=== PATIENT | female | born 1950 | race Caucasian/White ===

== ENCOUNTER → 2017-09-30 09:41 | Outpatient (CLI) | payer MEDICARE, OTHER, SELFPAY ==
[2017-09-30 09:57] LABS: Add Manual Diff / Slide Review NO; Basophils Percent Auto 1.1 % (0-2); Eosinophils Percent Auto 3.3 % (2-4); Hematocrit 42.2 % (36-46); Hemoglobin 14.1 g/dL (12.0-16.0); Lymphocytes Percent Auto 33.4 % (25-40); Mean Corpuscular HGB Conc 33.5 % (30-36); Mean Corpuscular Hemoglobin 29.6 PG (26-34); Mean Corpuscular Volume 88.4 fL (80-100); Monocytes Percent Auto 9.5 % (3-14); Neutrophils Absolute Auto 2700 /uL (3000-5900); Neutrophils Percent Auto 52.7 % (50-75); Platelet Count 195 X10^3/uL (150-400); Red Blood Cell Count 4.77 X10^6/uL (4.0-5.2); White Blood Cell Count 5.2 X10^3/uL (4.5-11.0)
[2017-09-30 10:33] LABS: Alanine Aminotransferase 28 IU/L (9-52); Albumin 4.3 g/dL (3.5-5.0); Albumin Globulin Ratio 1.7 (1.0-2.8); Alkaline Phosphatase 51 U/L (38-126); Aspartate Aminotransferase 27 IU/L (14-36); BUN Creatinine Ratio 17.5 (6-22); Bilirubin Total 0.9 mg/dL (0.2-1.3); Blood Urea Nitrogen 14 mg/dL (7-17); Calcium 9.5 mg/dL (8.4-10.2); Carbon Dioxide 30 mmol/L (22-32); Chloride 104 mmol/L (98-107); Cholesterol 175 mg/dL (140-199); Estimated Glomerular Filt Rate > 60.0 mL/min (>60); Globulin 2.6 g/dL (1.7-4.1); Glucose 97 mg/dL (80-110); HDL Cholesterol 61 mg/dL (40-60); HEMOLYSIS < 15 (0-50); LDL Cholesterol Calculated 99 mg/dL (<100); Sodium 141 mmol/L (137-145); Total Protein 6.9 g/dL (6.3-8.2); Triglycerides 74 mg/dL (35-150)
[2017-09-30 11:05] LABS: Thyroid Stimulating Hormone 2.34 uIU/mL (0.47-4.68)
== END ==
PROVIDERS: PCP Family Medicine; Visit Provider Family Medicine
DX: E78.5 Hyperlipidemia, unspecified (principal)
CPT/HCPCS: 36415; 80053; 80061; 84443; 85025

== ENCOUNTER 2018-03-11 07:52 | Emergency (ER) | payer MEDICARE, OTHER, SELFPAY ==
[2018-03-11 07:58] VITALS: BP 159/84; PULSE 65; RESP 18; TEMP 36.8; O2SAT 99
[2018-03-11 08:00] VITALS: BP 159/84; PULSE 65; RESP 18; TEMP 36.8; O2SAT 99; BMI 22.7
[2018-03-11] MEDS: KETOROLAC 60 MG/2 ML VIAL 15 MG IV (08:35)
[2018-03-11] MEDS: ONDANSETRON 4 MG/2 ML INJ IV (08:36)
[2018-03-11] MEDS: SODIUM CHLORIDE 0.9% 1,000 ML 1000 ML IV (08:36)
[2018-03-11 08:37] LABS: Add Manual Diff / Slide Review NO; Basophils Percent Auto 0.6 % (0-2); Eosinophils Percent Auto 1.7 % (2-4); Hematocrit 41.6 % (36-46); Hemoglobin 14.2 g/dL (12.0-16.0); Lymphocytes Percent Auto 32.9 % (25-40); Mean Corpuscular HGB Conc 34.2 % (30-36); Mean Corpuscular Hemoglobin 29.7 PG (26-34); Mean Corpuscular Volume 86.9 fL (80-100); Monocytes Percent Auto 10.2 % (3-14); Neutrophils Absolute Auto 3400 /uL (1500-7000); Neutrophils Percent Auto 54.6 % (50-75); Platelet Count 237 X10^3/uL (150-400); Red Blood Cell Count 4.79 X10^6/uL (4.0-5.2); Red Cell Distribution Width 12.8 % (11.6-14.8); White Blood Cell Count 6.2 X10^3/uL (4.5-11.0)
[2018-03-11 08:48] LABS: BUN Creatinine Ratio 12.5 (6-22); Blood Urea Nitrogen 10 mg/dL (7-17); Calcium 9.7 mg/dL (8.4-10.2); Carbon Dioxide 23 mmol/L (22-32); Chloride 105 mmol/L (98-107); Estimated Glomerular Filt Rate > 60.0 mL/min (>60); Glucose 112 mg/dL (80-110); HEMOLYSIS < 15 (0-50); Potassium 3.6 mmol/L (3.4-5.1); Sodium 143 mmol/L (137-145)
--- NOTE | 2018-03-11 08:59 | ED.ABDPAIN ---
HPI - Abdominal Pain General Chief Complaint: Abdominal Pain Stated Complaint: THINKS KIDNEY STONE,THROWING UP Time Seen by Provider: 03/11/18 07:56 Source: patient Mode of arrival: ambulatory Limitations: no limitations History of Present Illness HPI narrative: 67F non smoker presents with the chief complaint of sudden onset left lower quadrant pain that started about 1 hr ago. She denies radiation of the pain. She denies provocation, palliation or radiation. She has had nausea and vomiting secondary to pain. She denies fever or chills. She denies any dysuria, frequency or urgency. She has a history of kidney stones and diverticulitis and states this feels like kidney stones. Related Data Home Medications Medication Instructions Recorded Confirmed Cholesteroloff Plus PO 09/30/17 09/30/17 red yeast rice 600 mg tablet 600 mg PO DAILY 09/30/17 09/30/17 Previous Rx's Medication Instructions Recorded simvastatin 20 mg tablet 10 mg PO Q DAY #30 tab 01/17/18 ketorolac 10 mg PO Q6H PRN #14 tab 03/11/18 ondansetron 4 mg PO TID-QID PRN #10 tab 03/11/18 tamsulosin [Flomax] 0.4 mg PO DAILY #10 cap 03/11/18 Allergies Allergy/AdvReac Type Severity Reaction Status Date / Time No Known Drug Allergies Allergy Verified 03/11/18 08:04 Review of Systems Review of Systems All systems reviewed & are unremarkable except as noted in HPI and below Constitutional Denies chills, Denies fever(s), Denies lethargy and Denies weakness Eyes Denies change in vision, Denies eye discharge, Denies irritation and Denies loss of vision ENT Ears, Nose, Mouth, and Throat: Denies change in voice, Denies neck pain and Denies sore throat Cardiovascular Denies chest pain, Denies irregular heart rhythm, Denies lightheadedness, Denies palpitations, Denies dyspnea, Denies dyspnea on exertion and Denies orthopnea Respiratory Denies cough, Denies dyspnea, Denies dyspnea on exertion and Denies wheezing Gastrointestinal Gastrointestinal: Reports abdominal pain, Denies change in bowel habits, Denies diarrhea, Reports nausea and Reports vomiting Genitourinary Denies hematuria, Denies flank pain, Denies urinary incontinence and Denies urinary urgency Musculoskeletal Denies neck pain Integumentary/Breasts Denies pruritus, Denies erythema, Denies rash and Denies wounds Neurologic Denies confusion, Denies loss of vision and Denies weakness Psychiatric Denies anxiety, Denies confusion, Denies depression, Denies homicidal ideation and Denies suicidal ideation Endocrine Denies palpitations Hematologic/Lymphatic Denies easy bruising Allergic/Immunologic Denies wheezing [facility] Medical History Allergic rhinitis (Chronic Unknown) Diverticular disease (Chronic Unknown) Hearing loss (Chronic Unknown) Hyperlipemia (Chronic Unknown) Surgical History History of ear surgery (Resolved ~1985) Hx of thumb surgery (Resolved Unknown) Hx of tonsillectomy (Resolved Unknown) Status post knee surgery Family History Father CAD (coronary artery disease) Smoker Mother Hx of CABG High cholesterol Hypertension Glaucoma Social History Smoking Status: Never smoker alcohol intake: former Exam Narrative Exam Narrative: GENERAL: 67-year-old female, obviously in pain, pacing the room HEAD: Atraumatic. Normocephalic. No temporal or scalp tenderness. EYES: Pupils equal round and reactive. Extraocular motions intact. No scleral icterus. No injection or drainage. ENT: Nose without bleeding, purulent drainage or septal hematoma. Throat without erythema, tonsillar hypertrophy or exudate. Uvula midline. Airway patent. NECK: Trachea midline. No JVD or lymphadenopathy. Supple, nontender, no meningeal signs. CARDIOVASCULAR: Regular rate and rhythm without murmurs, gallops, or rubs. RESPIRATORY: Clear to auscultation. Breath sounds equal bilaterally. No wheezes, rales, or rhonchi. GASTROINTESTINAL: Abdomen soft, non-tender, nondistended. No hepato-splenomegaly, or palpable masses. No guarding. EXTREMITIES: No clubbing, cyanosis, or edema. No joint tenderness, effusion, or edema noted. BACK: Nontender without deformity or crepitance. No flank tenderness. NEURO: AOx3. SKIN: No rash or erythema. Initial Vital Signs Initial Vital Signs: Vital Signs Temperature 98.3 F 03/11/18 07:58 Pulse Rate 65 03/11/18 07:58 Respiratory Rate 18 03/11/18 07:58 Blood Pressure 159/84 H 03/11/18 07:58 Pulse Oximetry 99 03/11/18 07:58 Const General: cooperative and well developed Nutritional Appearance: well nourished Orientation: alert, awake, oriented x3 and not confused [facility] Head: normocephalic and atraumatic Ears: external ears normal and TM's normal bilaterally Nose: external nose normal and No nasal discharge Face and sinus: sinuses nontender, face symmetric, no sinus tenderness and No dry mucous membranes Mouth: oral mucosae normal and moist mucous membranes Teeth and gingiva: dentition normal Throat: tonsils normal and uvula midline Neck Neck: normal visual inspection, trachea midline, No lymphadenopathy, No midline deformity and No JVD Lymphatic: No lymphedema Resp Effort & Inspection: normal respiratory effort, able to speak in complete sentences, no respiratory distress and no use of accessory muscles Auscultation: clear to auscultation bilaterally, no rales, no rhonchi and no wheezes GI Inspection: non-distended Palpation: soft, no hepatosplenomegaly, No guarding, No pulsatile mass and No tender Auscultation: normal bowel sounds Back/Spine/Pelvis Back: No CVA tenderness Cervical Spine: cervical ROM normal and No pain with cervical ROM Thoracic/Lumbar Spine: thoracic and lumbar spine normal to inspection Neuro General: alert, oriented x3, gait normal and no focal motor deficits Speech: speech normal Extrem General: full ROM, no clubbing, cyanosis or edema, no pedal edema and no calf tenderness Course Orders Ordered: ED Orders 03/11/18 08:25 Basic Metabolic Panel Stat Complete Blood Count AUTO DIFF Stat 03/11/18 08:30 Urine Microscopic Stat Ondansetron HCl (Zofran) 4 mg IV Q4HR PRN PRN Reason: Nausea And Vomiting Last Admin: 03/11/18 08:36 Dose: 4 mg Discontinued Medications Sodium Chloride (Normal Saline 0.9%) 1,000 mls @ 1,000 mls/hr IV BOLUS ONE Stop: 03/11/18 09:25 Last Admin: 03/11/18 08:36 Dose: 1,000 mls/hr Ketorolac Tromethamine (Toradol) 15 mg IV NOW ONE Stop: 03/11/18 08:27 Last Admin: 03/11/18 08:35 Dose: 15 mg Reevaluation(s) Reevaluation #1: Patient has tremendous improvement in symptoms after above-stated therapies Vital Signs - 8 hr 03/11/18 07:58 03/11/18 08:00 03/11/18 09:11 Temperature 98.3 F 98.3 F Pulse Rate 65 65 55 L Respiratory Rate 18 18 18 Blood Pressure 159/84 H Blood Pressure [Right Arm] 159/84 H 145/65 H Pulse Oximetry 99 99 98 MDM - Abdominal Pain Differential Diagnosis Differential diagnosis: Likely abdominal pain, calculus of kidney, diverticulitis, small bowel obstruction and other Medical Records Attestation: I reviewed the patient's medical records. Lab Data Attestation: I reviewed the patient's lab results. Result diagrams: 03/11/18 08:25 03/11/18 08:25 Lab Results 03/11/18 03/11/18 03/11/18 Range/Units 08:25 08:25 08:30 WBC 6.2 (4.5-11.0) X10^3/uL RBC 4.79 (4.0-5.2) X10^6/uL Hgb 14.2 (12.0-16.0) g/dL Hct 41.6 (36-46) % MCV 86.9 (80-100) fL MCH 29.7 (26-34) PG MCHC 34.2 (30-36) % RDW 12.8 (11.6-14.8) % Plt Count 237 (150-400) X10^3/uL Neut % (Auto) 54.6 (50-75) % Lymph % (Auto) 32.9 (25-40) % Centre % (Auto) 10.2 (3-14) % Eos % (Auto) 1.7 L (2-4) % Baso % (Auto) 0.6 (0-2) % Neut # (Auto) 3400 (3095-2286) /uL Sodium 143 (137-145) mmol/L Potassium 3.6 (3.4-5.1) mmol/L Chloride 105 (98-107) mmol/L Carbon Dioxide 23 (22-32) mmol/L BUN 10 (7-17) mg/dL Creatinine 0.80 (0.52-1.04) mg/dL Estimated GFR > 60.0 (>60) mL/min BUN/Creatinine Ratio 12.5 (6-22) Glucose 112 H (80-110) mg/dL Calcium 9.7 (8.4-10.2) mg/dL Urine RBC 5-10/hpf H (0-5/HPF) Urine WBC 0-1/hpf (0-5/HPF) Ur Squamous Epith Cells 1-5 /hpf Urine Bacteria None seen (None) Ur Culture Indicated? Cult not indicated Micro UA Comment Not Reportable Point of care testing: Urine Dip Bedside Urine Glucose Negative Bedside Urine Bilirubin - Negative Bedside Urine Ketone - Negative Urine Specific [place] 1.030 Bedside Urine Occult Blood ++ Bedside Urine pH 6.0 Bedside Urine Protein +/- 15 Bedside Urine Urobilinogen +/- 1mg Bedside Urine Nitrite - Negative Bedside Urine Leukocytes + 70 Esterase MDM Narrative Medical decision making narrative: patient presents with symptoms very suggestive of kidney stone including lack of provocation or palliation, unable to find a position of comfort, along with blood in her urine and normal labs. Other diagnoses such as diverticulitis, ovarian or other were considered but lack of suggestive symptoms, labs mid this much less likely Discharge Plan Departure Patient Disposition: Home Clinical Impression: Calculus of kidney Discharge Date/Time: 03/11/18 09:35 Instructions: DI for Kidney Stones Activity Restrictions/Additional Instructions: *You have been diagnosed with [ kidney stone ] *What to do: *Take medications as directed: [facility] [place] at your request *Follow up with your primary care provider in 2-3 days, call for an appointment. Let them know you were seen in the Emergency Department and that we ask that you be seen in follow up *Return to ER if you should have any new, worsening or concerning symptoms, such as [fever, shaking chills, persistent vomiting, worsening pain, other bothersome symptoms ] Prescriptions: New ketorolac 10 mg tablet 10 mg PO Q6H PRN (Reason: pain) Qty: 14 RF: 0 tamsulosin [Flomax] 0.4 mg capsule 0.4 mg PO DAILY Qty: 10 RF: 0 ondansetron 4 mg tablet,disintegrating 4 mg PO TID-QID PRN (Reason: nausea and vomiting) Qty: 10 RF: 0 No Action red yeast rice 600 mg tablet 600 mg PO DAILY RF: 0 Cholesteroloff Plus PO RF: 0 simvastatin 20 mg tablet 10 mg PO Q DAY Qty: 30 RF: 0 Referrals: Omkar Gama MD [Non-Staff] - Payton Marroquin DO [Primary Care Provider] -
[2018-03-11 09:06] LABS: Bacteria Urine None Seen
[2018-03-11 09:07] LABS: Culture Indicated Urine Cult Not Indicated
[2018-03-11 09:08] LABS: RBC Urine 5-10/HPF (0-5/HPF); WBC Urine 0-1/HPF (0-5/HPF)
[2018-03-11 09:09] LABS: Squamous Epithelial Cell Urine 1-5 /HPF
[2018-03-11 09:11] VITALS: BP 145/65; PULSE 55; RESP 18; O2SAT 98
--- NOTE | 2018-03-11 09:26 | ED_ITS ---
HPI - Abdominal Pain General Chief Complaint: Abdominal Pain Stated Complaint: THINKS KIDNEY STONE,THROWING UP Time Seen by Provider: 03/11/18 07:56 Source: patient Mode of arrival: ambulatory Limitations: no limitations History of Present Illness HPI narrative: 67F non smoker presents with the chief complaint of sudden onset left lower quadrant pain that started about 1 hr ago. She denies radiation of the pain. She denies provocation, palliation or radiation. She has had nausea and vomiting secondary to pain. She denies fever or chills. She denies any dysuria, frequency or urgency. She has a history of kidney stones and diverticulitis and states this feels like kidney stones. Related Data Home Medications Medication Instructions Recorded Confirmed Cholesteroloff Plus PO 09/30/17 09/30/17 red yeast rice 600 mg tablet 600 mg PO DAILY 09/30/17 09/30/17 Previous Rx's Medication Instructions Recorded simvastatin 20 mg tablet 10 mg PO Q DAY #30 tab 01/17/18 ketorolac 10 mg PO Q6H PRN #14 tab 03/11/18 ondansetron 4 mg PO TID-QID PRN #10 tab 03/11/18 tamsulosin [Flomax] 0.4 mg PO DAILY #10 cap 03/11/18 Allergies Allergy/AdvReac Type Severity Reaction Status Date / Time No Known Drug Allergies Allergy Verified 03/11/18 08:04 Review of Systems Review of Systems All systems reviewed & are unremarkable except as noted in HPI and below Constitutional Denies chills, Denies fever(s), Denies lethargy and Denies weakness Eyes Denies change in vision, Denies eye discharge, Denies irritation and Denies loss of vision ENT Ears, Nose, Mouth, and Throat: Denies change in voice, Denies neck pain and Denies sore throat Cardiovascular Denies chest pain, Denies irregular heart rhythm, Denies lightheadedness, Denies palpitations, Denies dyspnea, Denies dyspnea on exertion and Denies orthopnea Respiratory Denies cough, Denies dyspnea, Denies dyspnea on exertion and Denies wheezing Gastrointestinal Gastrointestinal: Reports abdominal pain, Denies change in bowel habits, Denies diarrhea, Reports nausea and Reports vomiting Genitourinary Denies hematuria, Denies flank pain, Denies urinary incontinence and Denies urinary urgency Musculoskeletal Denies neck pain Integumentary/Breasts Denies pruritus, Denies erythema, Denies rash and Denies wounds Neurologic Denies confusion, Denies loss of vision and Denies weakness Psychiatric Denies anxiety, Denies confusion, Denies depression, Denies homicidal ideation and Denies suicidal ideation Endocrine Denies palpitations Hematologic/Lymphatic Denies easy bruising Allergic/Immunologic Denies wheezing [facility] Medical History Allergic rhinitis (Chronic Unknown) Diverticular disease (Chronic Unknown) Hearing loss (Chronic Unknown) Hyperlipemia (Chronic Unknown) Surgical History History of ear surgery (Resolved ~1985) Hx of thumb surgery (Resolved Unknown) Hx of tonsillectomy (Resolved Unknown) Status post knee surgery Family History Father CAD (coronary artery disease) Smoker Mother Hx of CABG High cholesterol Hypertension Glaucoma Social History Smoking Status: Never smoker alcohol intake: former Exam Narrative Exam Narrative: GENERAL: 67-year-old female, obviously in pain, pacing the room HEAD: Atraumatic. Normocephalic. No temporal or scalp tenderness. EYES: Pupils equal round and reactive. Extraocular motions intact. No scleral icterus. No injection or drainage. ENT: Nose without bleeding, purulent drainage or septal hematoma. Throat without erythema, tonsillar hypertrophy or exudate. Uvula midline. Airway patent. NECK: Trachea midline. No JVD or lymphadenopathy. Supple, nontender, no meningeal signs. CARDIOVASCULAR: Regular rate and rhythm without murmurs, gallops, or rubs. RESPIRATORY: Clear to auscultation. Breath sounds equal bilaterally. No wheezes , rales, or rhonchi. GASTROINTESTINAL: Abdomen soft, non-tender, nondistended. No hepato-splenomegaly , or palpable masses. No guarding. EXTREMITIES: No clubbing, cyanosis, or edema. No joint tenderness, effusion, or edema noted. BACK: Nontender without deformity or crepitance. No flank tenderness. NEURO: AOx3. SKIN: No rash or erythema. Initial Vital Signs Initial Vital Signs: Vital Signs Temperature 98.3 F 03/11/18 07:58 Pulse Rate 65 03/11/18 07:58 Respiratory Rate 18 03/11/18 07:58 Blood Pressure 159/84 H 03/11/18 07:58 Pulse Oximetry 99 03/11/18 07:58 Const General: cooperative and well developed Nutritional Appearance: well nourished Orientation: alert, awake, oriented x3 and not confused [facility] Head: normocephalic and atraumatic Ears: external ears normal and TM's normal bilaterally Nose: external nose normal and No nasal discharge Face and sinus: sinuses nontender, face symmetric, no sinus tenderness and No dry mucous membranes Mouth: oral mucosae normal and moist mucous membranes Teeth and gingiva: dentition normal Throat: tonsils normal and uvula midline Neck Neck: normal visual inspection, trachea midline, No lymphadenopathy, No midline deformity and No JVD Lymphatic: No lymphedema Resp Effort & Inspection: normal respiratory effort, able to speak in complete sentences, no respiratory distress and no use of accessory muscles Auscultation: clear to auscultation bilaterally, no rales, no rhonchi and no wheezes GI Inspection: non-distended Palpation: soft, no hepatosplenomegaly, No guarding, No pulsatile mass and No tender Auscultation: normal bowel sounds Back/Spine/Pelvis Back: No CVA tenderness Cervical Spine: cervical ROM normal and No pain with cervical ROM Thoracic/Lumbar Spine: thoracic and lumbar spine normal to inspection Neuro General: alert, oriented x3, gait normal and no focal motor deficits Speech: speech normal Extrem General: full ROM, no clubbing, cyanosis or edema, no pedal edema and no calf tenderness Course Orders Ordered: ED Orders 03/11/18 08:25 Basic Metabolic Panel Stat Complete Blood Count AUTO DIFF Stat 03/11/18 08:30 Urine Microscopic Stat Ondansetron HCl (Zofran) 4 mg IV Q4HR PRN PRN Reason: Nausea And Vomiting Last Admin: 03/11/18 08:36 Dose: 4 mg Discontinued Medications Sodium Chloride (Normal Saline 0.9%) 1,000 mls @ 1,000 mls/hr IV BOLUS ONE Stop: 03/11/18 09:25 Last Admin: 03/11/18 08:36 Dose: 1,000 mls/hr Ketorolac Tromethamine (Toradol) 15 mg IV NOW ONE Stop: 03/11/18 08:27 Last Admin: 03/11/18 08:35 Dose: 15 mg Reevaluation(s) Reevaluation #1: Patient has tremendous improvement in symptoms after above- stated therapies Vital Signs - 8 hr 03/11/18 07:58 03/11/18 08:00 03/11/18 09:11 Temperature 98.3 F 98.3 F Pulse Rate 65 65 55 L Respiratory Rate 18 18 18 Blood Pressure 159/84 H Blood Pressure [Right Arm] 159/84 H 145/65 H Pulse Oximetry 99 99 98 MDM - Abdominal Pain Differential Diagnosis Differential diagnosis: Likely abdominal pain, calculus of kidney, diverticulitis, small bowel obstruction and other Medical Records Attestation: I reviewed the patient's medical records. Lab Data Attestation: I reviewed the patient's lab results. Result diagrams: 03/11/18 08:25 03/11/18 08:25 Lab Results 03/11/18 03/11/18 03/11/18 Range/Units 08:25 08:25 08:30 WBC 6.2 (4.5-11.0) X10^3/uL RBC 4.79 (4.0-5.2) X10^6/uL Hgb 14.2 (12.0-16.0) g/dL Hct 41.6 (36-46) % MCV 86.9 (80-100) fL MCH 29.7 (26-34) PG MCHC 34.2 (30-36) % RDW 12.8 (11.6-14.8) % Plt Count 237 (150-400) X10^3/uL Neut % (Auto) 54.6 (50-75) % Lymph % (Auto) 32.9 (25-40) % [place] % (Auto) 10.2 (3-14) % Eos % (Auto) 1.7 L (2-4) % Baso % (Auto) 0.6 (0-2) % Neut # (Auto) 3400 (5992-1675) /uL Sodium 143 (137-145) mmol/L Potassium 3.6 (3.4-5.1) mmol/L Chloride 105 (98-107) mmol/L Carbon Dioxide 23 (22-32) mmol/L BUN 10 (7-17) mg/dL Creatinine 0.80 (0.52-1.04) mg/dL Estimated GFR > 60.0 (>60) mL/min BUN/Creatinine Ratio 12.5 (6-22) Glucose 112 H (80-110) mg/dL Calcium 9.7 (8.4-10.2) mg/dL Urine RBC 5-10/hpf H (0-5/HPF) Urine WBC 0-1/hpf (0-5/HPF) Ur Squamous Epith Cells 1-5 /hpf Urine Bacteria None seen (None) Ur Culture Indicated? Cult not indicated Micro UA Comment Not Reportable Point of care testing: Urine Dip Bedside Urine Glucose Negative Bedside Urine Bilirubin - Negative Bedside Urine Ketone - Negative Urine Specific [place] 1.030 Bedside Urine Occult Blood ++ Bedside Urine pH 6.0 Bedside Urine Protein +/- 15 Bedside Urine Urobilinogen +/- 1mg Bedside Urine Nitrite - Negative Bedside Urine Leukocytes + 70 Esterase MDM Narrative Medical decision making narrative: patient presents with symptoms very suggestive of kidney stone including lack of provocation or palliation, unable to find a position of comfort, along with blood in her urine and normal labs. Other diagnoses such as diverticulitis, ovarian or other were considered but lack of suggestive symptoms, labs mid this much less likely Discharge Plan Departure Patient Disposition: Home Clinical Impression: Calculus of kidney Discharge Date/Time: 03/11/18 09:35 Instructions: DI for Kidney Stones Activity Restrictions/Additional Instructions: *You have been diagnosed with [ kidney stone ] *What to do: *Take medications as directed: [facility] [place] at your request *Follow up with your primary care provider in 2-3 days, call for an appointment. Let them know you were seen in the Emergency Department and that we ask that you be seen in follow up *Return to ER if you should have any new, worsening or concerning symptoms , such as [fever, shaking chills, persistent vomiting, worsening pain, other bothersome symptoms ] Prescriptions: New ketorolac 10 mg tablet 10 mg PO Q6H PRN (Reason: pain) Qty: 14 RF: 0 tamsulosin [Flomax] 0.4 mg capsule 0.4 mg PO DAILY Qty: 10 RF: 0 ondansetron 4 mg tablet,disintegrating 4 mg PO TID-QID PRN (Reason: nausea and vomiting) Qty: 10 RF: 0 No Action red yeast rice 600 mg tablet 600 mg PO DAILY RF: 0 Cholesteroloff Plus PO RF: 0 simvastatin 20 mg tablet 10 mg PO Q DAY Qty: 30 RF: 0 Referrals: Omkar Gama MD [Non-Staff] - Payton Marroquin DO [Primary Care Provider] -
[2018-03-11 09:31] VITALS: BP 105/91; PULSE 54; RESP 16; O2SAT 98
[2018-03-11 09:34] VITALS: BP 105/91; PULSE 55; RESP 16; O2SAT 98
== END 2018-03-11 09:35 | disposition home or self-care (01) ==
PROVIDERS: Emergency Provider Emergency Medicine; Family Provider Family Medicine; PCP Family Medicine
DX: N20.0 Calculus of kidney (principal)
CPT/HCPCS: 36591; 80048; 81003; 81015; 85025; 96361; 96374; 96375; 99283; 99284; J1885; J2405

== ENCOUNTER → 2018-08-12 09:16 | Outpatient (CLI) | payer MEDICARE, OTHER, SELFPAY ==
--- NOTE | 2018-08-12 | DI.MG.S_ITS ---
BILATERAL DIGITAL SCREENING MAMMOGRAM 3D/2D WITH CAD: 08/12/2018 CLINICAL: Routine screening. Comparison is made to exams dated: 12/27/2012 mammogram, 10/28/2010 mammogram, and 11/24/2011 mammogram - [facility]. The tissue of both breasts is heterogeneously dense. This may lower the sensitivity of mammography. Current study was also evaluated with a Computer Aided Detection (CAD) system. No significant masses, calcifications, or other findings are seen in either breast. There has been no significant interval change. IMPRESSION: NEGATIVE There is no mammographic evidence of malignancy. A 1 year screening mammogram is recommended. This exam was interpreted at Station ID: [id number]. NOTE: For mammograms, a report in lay terms will be sent to the patient. Approximately 15% of breast malignancies will not be visualized mammographically. In the management of a palpable breast mass, a negative mammogram must not discourage biopsy of a clinically suspicious lesion. Electronically Signed By: Jose dumont/meryl:08/13/2018 14:52:37 letter sent: Normal Exam ACR BI-RADS Category 1: Negative [id number]
== END ==
PROVIDERS: Family Provider Family Medicine; PCP Family Medicine; Visit Provider Family Medicine
DX: Z12.31 Encounter for screening mammogram for malignant neoplasm of breast (principal)
CPT/HCPCS: 77063; 77067

== ENCOUNTER → 2018-09-26 07:33 | Outpatient (CLI) | payer MEDICARE, OTHER, SELFPAY ==
[2018-09-26 07:38] LABS: RBC Urine None Seen (0-5/HPF); WBC Urine None Seen (0-5/HPF)
[2018-09-26 08:03] LABS: Appearance Urine UA CLEAR; Bilirubin Urine UA NEGATIVE (NEGATIVE); Color Urine UA YELLOW; Glucose Urine UA NEGATIVE (Negative); Ketones Urine UA NEGATIVE (NEGATIVE); Leukocyte Esterase Urine UA NEGATIVE (NEGATIVE); Nitrite Urine UA NEGATIVE (Negative); Occult Blood Urine UA NEGATIVE (Negative); Protein Urine UA NEGATIVE (Negative); Urobilinogen Urine UA 0.2 E.U./dL (0.2)
[2018-09-26 08:11] LABS: Add Manual Diff / Slide Review NO; Basophils Absolute Auto 100 /uL (0-100); Basophils Percent Auto 1.1 % (0-2); Eosinophils Absolute Auto 100 /uL (0-450); Hematocrit 42.2 % (36-46); Hemoglobin 14.4 g/dL (12.0-16.0); Lymphocytes Absolute Auto 1700 /uL (1100-4500); Lymphocytes Percent Auto 34.3 % (25-40); Mean Corpuscular HGB Conc 34.2 % (30-36); Mean Corpuscular Hemoglobin 30.1 PG (26-34); Mean Corpuscular Volume 87.8 fL (80-100); Monocytes Absolute Auto 400 /uL (0-900); Monocytes Percent Auto 9.2 % (3-14); Neutrophils Absolute Auto 2500 /uL (1500-7000); Neutrophils Percent Auto 52.4 % (50-75); Platelet Count 210 X10^3/uL (150-400); Red Blood Cell Count 4.81 X10^6/uL (4.0-5.2); Red Cell Distribution Width 13.1 % (11.6-14.8); White Blood Cell Count 4.8 X10^3/uL (4.5-11.0)
[2018-09-26 08:16] LABS: Bacteria Urine Few (2-10); Culture Indicated Urine Cult Not Indicated; Squamous Epithelial Cell Urine 0-1 /HPF (0-5/HPF)
[2018-09-26 08:21] LABS: Alanine Aminotransferase 13 IU/L (9-52); Albumin 4.2 g/dL (3.5-5.0); Albumin Globulin Ratio 1.4 (1.0-2.8); Alkaline Phosphatase 63 U/L (38-126); Aspartate Aminotransferase 26 IU/L (14-36); BUN Creatinine Ratio 13.8 (6-22); Bilirubin Total 0.7 mg/dL (0.2-1.3); Blood Urea Nitrogen 11 mg/dL (7-17); Calcium 9.5 mg/dL (8.4-10.2); Carbon Dioxide 30 mmol/L (22-32); Chloride 103 mmol/L (98-107); Cholesterol 213 mg/dL (140-199); Estimated Glomerular Filt Rate > 60.0 mL/min (>60); Globulin 2.9 g/dL (1.7-4.1); Glucose 92 mg/dL (80-110); HDL Cholesterol 67 mg/dL (40-60); HEMOLYSIS < 15 (0-50); LDL Cholesterol Calculated 126 mg/dL (<100); Sodium 140 mmol/L (137-145); Total Protein 7.1 g/dL (6.3-8.2); Triglycerides 100 mg/dL (35-150)
[2018-09-26 09:31] LABS: Thyroid Stimulating Hormone 3.26 uIU/mL (0.47-4.68)
== END ==
PROVIDERS: PCP Family Medicine; Visit Provider Family Medicine
DX: E78.5 Hyperlipidemia, unspecified (principal)
CPT/HCPCS: 36415; 80053; 80061; 81001; 84443; 85025